=== PATIENT | female | born 1980 | race Asian ===

== ENCOUNTER → 2017-10-20 09:21 | Outpatient (CLI) | payer OTHER, SELFPAY ==
--- NOTE | 2017-10-20 | DI.ECHO.S_ITS ---
[facility] +---------+ [facility] +---------+ : : [address] : [address] : : : : [id number] : : : : Phone: [phone]+ Echocardiogram Report + + :Name: SILVERIO MALIK Study Date: 10/20/2017 Height: 61 in : :[facility] Exam Location: [facility] Weight: 154 lb : : Gender: Female BSA: 1.7 m2 : :: 1980 Age: 37 yrs BP: 118/70 mmHg: :Reason For Study: CARDIOMYOPATHY : :Ordering Physician: Salima : :Christiano Performed By: Mary Zavala : :Referring: SALIMA DOOLEY : + + Interpretation Summary Left ventricular size is at the upper limits of normal. The ejection fraction is estimated to be 40-45%. There has been no significant change in LV EF since the previous study. There is apical hypokinesis. The right ventricle is normal in size and function. There is mild to moderate mitral regurgitation. Compared to the prior echo study, there has been no change in the severity of mitral regurgitation. Procedure: A two-dimensional transthoracic echocardiogram with color flow and Doppler was performed. The study quality was technically adequate. Comparison is made with the echocardiogram of 09/03/15. The patient was in normal sinus rhythm during the exam. Left Ventricle: There is normal left ventricular wall thickness. Left ventricular size is at the upper limits of normal. There is no thrombus. The ejection fraction is estimated to be 40-45%. There has been no significant change since the previous study. There is apical hypokinesis. Compared to the prior exam, the left ventricular wall motion has not changed. Assessment of diastolic parameters indicates normal left ventricular diastolic function and normal filling pressures. Right Ventricle: The right ventricle is normal in size and function. Atria: The left atrium is mildly dilated. There has been no significant change since the previous study. Right atrial size is normal. There is no Doppler evidence for an interatrial shunt. Mitral Valve: The mitral valve leaflets are slightly calcified. There is mild to moderate mitral regurgitation. The mitral regurgitant jet is eccentrically directed. PISA could not be reliably performed due to 'eccentric jet'. Compared to the prior echo study, there has been no change in the severity of mitral regurgitation. Aortic Valve: The aortic valve is slightly calcified. The aortic valve is trileaflet. The aortic valve opens well. No aortic regurgitation is present. Tricuspid Valve: The tricuspid valve is normal. There is trace tricuspid regurgitation. The right ventricular systolic pressure is estimated at 19 mmHg assuming a right atrial pressure of 8 mm Hg. Pulmonic Valve: The pulmonic valve leaflets are thin and pliable; valve motion is normal. There is a trace or physiologic amount of pulmonic regurgitation. Great Vessels: The aortic root is normal size. The ascending aorta is normal in size. The aortic arch is normal in size. The pulmonary is not well visualized. The IVC is of normal diameter and collapses less than 50% with a sniff. This suggests a right atrial pressure of 8 mm Hg. Pericardium/ Pleura There is no pericardial effusion. There is no pleural effusion. MMode/2D Measurements & Calculations LVIDd: 5.3 cm LVOT diam: 2.2 cm LVIDs: 4.3 cm Ao root diam: 3.3 cm FS: 20.0 % asc Aorta Diam: 2.7 cm EPSS: 1.2 cm Ao Arch Diam (Prox Trans): 2.4 cm IVSd: 0.92 cm LVPWd: 0.77 cm LV durand. diameter/BSA (cm/m^2): 3.1 LV sys. diameter/BSA (cm/m^2): 2.5 LA A2 area: 16.5 cm2 RA long axis: 4.1 cm LA A4 area: 19.9 cm2 RA area: 13.6 cm2 LA length (vol): 4.7 cm RA vol: 38.0 ml LA vol: 59.5 ml RA : 22.5 ml/m2 LA vol index: 35.2 ml/m2 IVC diam: 1.7 cm RVD1 (basal): 3.6 cm RVD2 (mid): 2.5 cm TAPSE: 2.1 cm Doppler Measurements & Calculations Ao V2 max: 103.6 cm/sec LVOT Max Naresh: 71.6 cm/sec Ao V2 mean: 75.4 cm/sec LV V1 max P.0 mmHg Ao max P.3 mmHg LV V1 VTI: 13.9 cm Ao mean P.5 mmHg JARETT(I,D): 2.7 cm2 Ao V2 VTI: 20.3 cm JARETT(V,D): 2.7 cm2 sev ratio: 0.68 JARETT indexed to BSA (cm^2/m^2): 1.6 MV E max naresh: 73.5 cm/sec TR max naresh: 166.1 cm/sec MV A max naresh: 59.3 cm/sec TR max P.0 mmHg MV E/A: 1.2 PA V2 max: 51.9 cm/sec Med Peak E' Naresh: 5.3 cm/sec PA V2 mean: 36.7 cm/sec E/E' med: 13.8 PA mean P.59 mmHg Lat Peak E' Naresh: 8.6 cm/sec PA pr(Accel): 34.1 mmHg E/E' lat: 8.5 E/e' average: 11.1 MV dec time: 0.22 sec MV P1/2t: 65.9 msec MV P1/2t max naresh: 74.3 cm/sec MVA(P1/2t): 3.3 cm2 Reading Physician:DARA
== END ==
PROVIDERS: Visit Provider Internal Medicine Cardiovascular Disease
DX: I42.9 Cardiomyopathy, unspecified (principal); I34.0 Nonrheumatic mitral (valve) insufficiency
CPT/HCPCS: 93306